=== PATIENT | female | born 1935 | race Caucasian/White ===

== ENCOUNTER 2017-02-25 14:18 | Emergency (ER) | payer MEDICARE, OTHER ==
[~2017-02-25] VITALS: Ht 152.4 cm; Wt 57.0 kg
[~2017-02-25 14:18] MED LIST: ASPI81 PO; CITRTAB7 PO; ENAL2.5T40 IV; FOSI40TA PO; HYDR50TA15 PO; LISI-366 PO; METO100T PO; PRIL10CA PO; XARE15TA PO
[2017-02-25 14:23] VITALS: BP 233/93; PULSE 62; RESP 16; TEMP 97.5; O2SAT 95
[2017-02-25] MEDS ORDERED: GABA300C5 PO (14:34)
[2017-02-25] MEDS ORDERED: METO100T PO (14:34)
[2017-02-25 15:31] VITALS: BP 217/91
--- NOTE | 2017-02-25 15:41 | RADRPT ---
EXAM DATE/TIME: 02/25/2017 15:25 [facility] COMPARISON: No previous studies available for comparison. INDICATIONS : Trauma, fall. RADIATION DOSE: 58.71 CTDIvol (mGy) MEDICAL HISTORY : Cerebrovascular disease. Hypertension. SURGICAL HISTORY : None. ENCOUNTER: Initial ACUITY: 1 day PAIN SCALE: 4/10 LOCATION: cranial TECHNIQUE: Multiple contiguous axial images were obtained of the head. Using automated exposure control and adj ustment of the mA and/or kV according to patient size, radiation dose was kept as low as reasonably a chievable to obtain optimal diagnostic quality images. DICOM format image data is available electro nically for review and comparison. FINDINGS: CEREBRUM: The ventricles are normal for age. No evidence of midline shift, mass lesion, hemorrhage or acute in farction. No extra-axial fluid collections are seen. POSTERIOR FOSSA: The cerebellum and brainstem are intact. The 4th ventricle is midline. The cerebellopontine angle i s unremarkable. EXTRACRANIAL: The visualized portion of the orbits is intact. SKULL: The calvaria is intact. No evidence of skull fracture. CONCLUSION: Negative for acute traumatic injury. Mickey Jimenez MD FACR on February 25, 2017 at 15:39 Board Certified Radiologist. This report was verified electronically.
--- NOTE | 2017-02-25 15:54 | PD ---
HPI Chief Complaint: Fall Time Seen by Provider: 15:25 Travel History International Travel<30 days: No Contact w/Intl Traveler<30days: No Traveled to known affect area: No History of Present Illness HPI 81-year-old female patient presents to the ER today because she states that she was opening a chair when she lost balance and fell onto the table hitting the right part of her face. She had no loss consciousness and denies any other injuries. She is ambulatory in the ER. Modifying Factors: None Associated Signs & Symptoms: Fall, head injury Risk Factors: None PFSH Past Medical History Arthritis: Yes Heart Rhythm Problems: No Cancer: Yes (BREAST) Cardiovascular Problems: Yes High Cholesterol: Yes Chemotherapy: No Chest Pain: No Congestive Heart Failure: No Cerebrovascular Accident: Yes Diminished Hearing: No Endocrine: No Gastrointestinal Disorders: Yes (BOWEL PERFORATION DURING COLONOSCOPY (2011)) Genitourinary: Yes (RENAL CYST) Hypertension: Yes Immune Disorder: No Kidney Stones: No Musculoskeletal: Yes Neurologic: No Psychiatric: No Reproductive: No Respiratory: No Immunizations Current: Yes Migraines: Yes Radiation Therapy: Yes Renal Failure: No Seizures: No Influenza Vaccination: Yes ?: Not Past Surgical History Abdominal Surgery: Yes (EXPLORATORY LAPAROSCOPIC LAPAROTOMY- NO FINDINGS) Cardiac Surgery: No Ear Surgery: No Endocrine Surgery: No Eye Surgery: Yes (BILATERAL CATARACT SURGERY) Genitourinary Surgery: No Gynecologic Surgery: Yes (OVARIES REMOVED) Mastectomy: Yes (LEFT) Neurologic Surgery: Yes (LUM SINHA L3-L4 WITH ICBG) Oral Surgery: No Pacemaker: No Thoracic Surgery: Yes (MASTECTOMY L BREAST) Other Surgery: Yes Social History Alcohol Use: Yes (SOCIALLY) Tobacco Use: No Substance Use: No Allergies-Medications (Allergen,Severity, Reaction): Coded Allergies: Sulfa (Sulfonamide Antibiotics) (Unverified Allergy, Severe, RASH, 02/25/17 ) morphine (Unverified Adverse Reaction, Severe, CONFUSION, 02/25/17) Reported Meds & Prescriptions Reported Meds & Active Scripts Active Reported Metoprolol Tartrate 100 Mg Tab 100 Mg PO DAILY Gabapentin 300 Mg Cap 300 Mg PO TID Review of Systems Except as stated in HPI: all other systems reviewed are Neg Physical Exam Narrative GENERAL: Well-developed pleasant elderly white female patient currently not in acute distress. Awake and oriented 3. SKIN: Focused skin assessment warm/dry. HEAD: Small amount of erythema and tenderness to palpation of the right zygomatic arch and temporal area. No deformities identified. Normocephalic. EYES: Pupils equal and round. No scleral icterus. No injection or drainage. ENT: No nasal bleeding or discharge. Mucous membranes pink and moist. NECK: Trachea midline. No JVD. Supple. No midline C-spine tenderness. CARDIOVASCULAR: Regular rate and rhythm. No murmur appreciated. RESPIRATORY: No accessory muscle use. Clear to auscultation. Breath sounds equal bilaterally. GASTROINTESTINAL: Abdomen soft, non-tender, nondistended. Hepatic and splenic margins not palpable. MUSCULOSKELETAL: No obvious deformities. No clubbing. No cyanosis. No edema. NEUROLOGICAL: Awake and alert. No obvious cranial nerve deficits. Motor grossly within normal limits. Normal speech. PSYCHIATRIC: Appropriate mood and affect; insight and judgment normal. Data Data Last Documented VS Vital Signs Date Time Temp Pulse Resp B/P (MAP) Pulse Ox O2 Delivery O2 Flow Rate FiO2 02/25/17 15:31 217/91 (133) 02/25/17 14:23 97.5 [address] Brain W/O Iv Contrast(Rout) (02/25/17 15:13) Ct Facial Bones W/O Iv Cont (02/25/17 15:25) Ed Discharge Order (02/25/17 16:18) MDM Medical Decision Making Medical Screen Exam Complete: Yes Emergency Medical Condition: Yes Medical Record Reviewed: Yes Interpretation(s) Last [address] 02/25/17 1525 Signed Impressions: Service Date/Time: Saturday, February 25, 2017 15:25 - CONCLUSION: No evidence of facial fracture Michele Colindres MD Head CT 02/25/17 1513 Signed Impressions: Service Date/Time: Saturday, February 25, 2017 15:25 - CONCLUSION: Negative for acute traumatic injury. Mickey Jimenez MD FACR Differential Diagnosis Fall, facial and head injury: Rule out intracranial injuries versus contusions Narrative Course CAT scans not show any signs of acute intracranial injuries or any signs of underlying skull fractures. At this point, my plan would be to release her with symptomatic relief or pain and follow-up to primary care doctor. Return for any worsening in discomfort, vomiting, or new symptoms as needed. The plan has been discussed with her and she states understanding. Head injury instructions are given. Diagnosis Primary Impression: Facial contusion Additional Impression: Minor head injury without loss of consciousness Disposition: 01 DISCHARGE HOME Condition: Stable Arabella Torres MD Feb 25, 2017 15:54
--- NOTE | 2017-02-25 15:58 | RADRPT ---
EXAM DATE/TIME: 02/25/2017 15:25 [facility] COMPARISON: No previous studies available for comparison. INDICATIONS : Trauma, fall. RADIATION DOSE: 34.71 CTDIvol (mGy) MEDICAL HISTORY : Cerebrovascular disease. Hypertension. SURGICAL HISTORY : None. ENCOUNTER: Initial ACUITY: 1 day PAIN SCORE: 5/10 LOCATION: Right facial TECHNIQUE: Volumetric scanning of the facial bones was performed. Using automated exposure control and adjustme nt of the mA and/or kV according to patient size, radiation dose was kept as low as reasonably achiev able to obtain optimal diagnostic quality images. DICOM format image data is available electronicall y for review and comparison. FINDINGS: ORBITS: The orbital and infraorbital osseous structures are intact. The retroconal structures have a normal configuration. No radiopaque foreign bodies are seen. NASAL BONE: The nasal bone and maxillary spine are intact ZYGOMATIC ARCHES: Symmetric without evidence of fracture. SINUSES: The maxillary, ethmoid and frontal sinuses are intact. No air-fluid levels seen. NASAL CAVITY: The nasal septum is intact and midline. The lacrimal ducts are intact. SOFT TISSUES: Soft tissue swelling overlying the lateral right orbital region. No evidence of underlying fracture. INTRACRANIAL: No intracranial air seen. CRIBIFORM PLATE: Grossly intact. CONCLUSION: No evidence of facial fracture Michele Colindres MD on February 25, 2017 at 15:54 Board Certified Radiologist. This report was verified electronically.
[2017-02-25] MEDS ORDERED: cloNIDine HCL 0.1 MG TAB PO ONE (16:30)
== END 2017-02-25 17:07 | disposition home or self-care (01) ==
LOC: PHEFT 14:18
DX: S00.83XA Contusion of other part of head, initial encounter (principal); I10 Essential (primary) hypertension; W01.190A Fall on same level from slipping, tripping and stumbling with subsequent striking against furniture, initial encounter
CPT/HCPCS: 70450; 70486; 99285

== ENCOUNTER 2018-02-22 10:17 | Observation (INO) ==
--- NOTE | 2018-02-22 11:01 | ED ---
HPI General Chief Complaint: Chest Pain Stated Complaint: Chest pain x 1 wk/was treated for acid reflux Time Seen by Provider: 02/22/18 10:30 Source: patient Mode of arrival: ambulatory Limitations: no limitations History of Present Illness HPI narrative: Patient is an 82-year-old female with history of breast cancer, hypertension and hyperlipidemia who presents to the emergency room with complaints of chest pain. Patient reports that for the past few weeks, she has been treated with Pantaprozole 40mg for gerd. Patient reports that this has not helped her with her symptoms. Patient reports that for the past week, she has been having chest pain. Patient reports that pain is substernal in nature, reports that it feels like a "pressure" to her chest. Patient thinks that the pain was exacerbated by taking her Protonix, she also endorses that she was painting a few days ago with her friends which also exacerbated her chest pain. Patient reports that pain comes and goes, she did take some Tylenol which seemed to help with her symptoms but since she continued to have pain, patient concerned that this may be cardiac in nature. Patient denies history of ACS, denies history of coronary artery disease, denies history of cardiac stents. Patient with no nausea or vomiting, no diaphoresis with her symptoms. Related Data Allergies Allergy/AdvReac Type Severity Reaction Status Date / Time Sulfa (Sulfonamide Allergy Severe RASH Verified 02/22/18 10:36 Antibiotics) morphine AdvReac Severe CONFUSION Verified 02/22/18 10:36 Review of Systems ROS: all other systems reviewed are negative PMFSH History History Provided By: Patient Medical History Medical History GERD (gastroesophageal reflux disease) (Acute) HX: breast cancer (Acute) Hypertension (Acute) Surgical History Surgical History Hx of oophorectomy (Acute) Hx of tonsillectomy (Acute) Social History Social History Substance History: No History of Abuse Second Hand Smoke Exposure: No Smoking Status: Former smoker Tobacco Type: Cigarettes How Often Do You Have a Drink Containing Alcohol: 2 to 4 times a month Recent Travel in [facility] within the Last 8 Weeks: No Recent Out of Country Travel within the Last 8 Weeks: No Exam Narrative Exam Narrative: GENERAL: Mild distress SKIN: Focused skin assessment warm/dry. HEAD: Atraumatic. Normocephalic. EYES: Pupils equal and round. No scleral icterus. No injection or drainage. ENT: No nasal bleeding or discharge. Mucous membranes pink and moist. NECK: Trachea midline. No JVD. CARDIOVASCULAR: Regular rate and rhythm. No murmur appreciated. RESPIRATORY: No accessory muscle use. Clear to auscultation. Breath sounds equal bilaterally. GASTROINTESTINAL: Abdomen soft, non-tender, nondistended. Hepatic and splenic margins not palpable. MUSCULOSKELETAL: No obvious deformities. No clubbing. No cyanosis. No edema. NEUROLOGICAL: Awake and alert. No obvious cranial nerve deficits. Motor grossly within normal limits. Normal speech. PSYCHIATRIC: Appropriate mood and affect; insight and judgment normal. Course Initial Documented Vital Signs Temperature 98.6 F 02/22/18 10:22 Pulse Rate 66 02/22/18 10:22 Respiratory Rate 16 02/22/18 10:22 Blood Pressure 206/84 H 02/22/18 10:22 Pulse Oximetry 96 02/22/18 10:22 Last Documented Vital Signs Temperature 98.6 F 02/22/18 10:22 Pulse Rate 62 02/22/18 12:27 Respiratory Rate 16 02/22/18 12:27 Blood Pressure 215/80 H 02/22/18 12:27 Pulse Oximetry 99 02/22/18 12:27 Medical Decision Making MDM Narrative Medical decision making narrative: During the course of the patients emergency department visit, the patients history, examination, and differential diagnosis were reviewed with the patient. The patient was placed on a awake overnight monitor with oximetry and frequent blood pressure monitoring. The patient had an IV access obtained and blood work sent for analysis. The patient was initially provided asa 162mg as well as SL nitro The patients laboratory studies were reviewed and remarkable for WBC 7.8, hemoglobin 14.4, hematocrit 41.8, platelets 458 Sodium 139, potassium 4.9, chloride 105, BUN 20, creatinine 1.40, glucose 96 Troponin is less than 0.02 After 3 sublingual nitroglycerin, chest pain has completely resolved. Plan to observe patient in chest pain unit case reviewed with Dr. Mckenzie who accepts pt to service Medical Screen Exam Complete: Yes Emergency Medical Condition: Yes Differential Diagnosis Differential Diagnosis: ACS, arrhythmia, GERD, pancreatitis, gastritis, gastroenteritis Medical Records Medical records reviewed: Yes I reviewed the patient's medical records. Lab Data Lab results reviewed: Yes I reviewed the patient's lab results. Result diagrams: 02/22/18 10:43 02/22/18 10:43 Lab Results 02/22/18 02/22/18 02/22/18 Range/Units 10:43 10:43 10:43 CBC w Diff Auto diff final WBC 7.8 (4.0-11.0) th/mm3 RBC 4.48 (4.00-5.30) mil/mm3 Hgb 14.4 (11.6-15.3) gm/dL Hct 41.8 (35.0-46.0) % MCV 93.4 (80.0-100.0) fL MCH 32.2 (27.0-34.0) pg MCHC 34.5 (32.0-36.0) % RDW 12.6 (11.6-17.2) % Plt Count 458 H (150-450) th/mm3 MPV 8.7 (7.0-11.0) fL Neut % (Auto) 68.6 (16.0-70.0) % Lymph % (Auto) 16.3 (9.0-44.0) % Brooke % (Auto) 9.5 H (0.0-8.0) % Eos % (Auto) 4.9 H (0.0-4.0) % Baso % (Auto) 0.7 (0.0-2.0) % Neut # (Auto) 5.3 (1.8-7.7) th/mm3 Lymph # (Auto) 1.3 (1.0-4.8) th/mm3 Brooke # (Auto) 0.7 (0.0-0.9) th/mm3 Eos # (Auto) 0.4 (0.0-0.4) th/mm3 Baso # (Auto) 0.1 (0.0-0.2) th/mm3 WBC Differential . Differential Comment . PT 10.0 (9.8-11.6) sec INR 1.0 Ratio APTT 25.7 (23.4-31.7) sec Sodium 139 (136-145) meq/L Potassium 4.9 (3.5-5.1) meq/L Chloride 105 (98-107) meq/L Carbon Dioxide 24.3 (21.0-32.0) meq/L Anion Gap 10 (5-15) meq/L BUN 20 H (7-18) mg/dL Creatinine 1.40 H (0.50-1.00) mg/dL Estimated GFR 36 L (>89) mL/min Random Glucose 96 (74-106) mg/dL Calcium 9.0 (8.5-10.1) mg/dL Total Bilirubin 0.4 (0.2-1.0) mg/dL AST 27 (15-37) U/L ALT 28 (10-53) U/L Alkaline Phosphatase 90 (45-117) U/L Total Creatine Kinase 83 (26-192) U/L Troponin I Less than 0.02 L (0.02-0.05) ng/mL B-Natriuretic Peptide (0-100) pg/mL Total Protein 7.3 (6.4-8.2) g/dL Albumin 3.6 (3.4-5.0) g/dL Lipase 161 (73-393) U/L 02/22/18 Range/Units 10:43 CBC w Diff WBC (4.0-11.0) th/mm3 RBC (4.00-5.30) mil/mm3 Hgb (11.6-15.3) gm/dL Hct (35.0-46.0) % MCV (80.0-100.0) fL MCH (27.0-34.0) pg MCHC (32.0-36.0) % RDW (11.6-17.2) % Plt Count (150-450) th/mm3 MPV (7.0-11.0) fL Neut % (Auto) (16.0-70.0) % Lymph % (Auto) (9.0-44.0) % Brooke % (Auto) (0.0-8.0) % Eos % (Auto) (0.0-4.0) % Baso % (Auto) (0.0-2.0) % Neut # (Auto) (1.8-7.7) th/mm3 Lymph # (Auto) (1.0-4.8) th/mm3 Brooke # (Auto) (0.0-0.9) th/mm3 Eos # (Auto) (0.0-0.4) th/mm3 Baso # (Auto) (0.0-0.2) th/mm3 WBC Differential Differential Comment PT (9.8-11.6) sec INR Ratio APTT (23.4-31.7) sec Sodium (136-145) meq/L Potassium (3.5-5.1) meq/L Chloride (98-107) meq/L Carbon Dioxide (21.0-32.0) meq/L Anion Gap (5-15) meq/L BUN (7-18) mg/dL Creatinine (0.50-1.00) mg/dL Estimated GFR (>89) mL/min Random Glucose (74-106) mg/dL Calcium (8.5-10.1) mg/dL Total Bilirubin (0.2-1.0) mg/dL AST (15-37) U/L ALT (10-53) U/L Alkaline Phosphatase (45-117) U/L Total Creatine Kinase (26-192) U/L Troponin I (0.02-0.05) ng/mL B-Natriuretic Peptide 210 H (0-100) pg/mL Total Protein (6.4-8.2) g/dL Albumin (3.4-5.0) g/dL Lipase (73-393) U/L Imaging Data Attestation: I personally reviewed and interpreted this imaging study as follows : Radiologist's impression: Chest X-Ray 02/22/18 10:38 CONCLUSION: No acute cardiopulmonary disease. ECG Data EKG Prior to Arrival: No Attestation: I personally reviewed and interpreted this ECG as follows: Interpretation: EKG at 1041 shows normal sinus rhythm at 70 bpm, there is a first-degree AV block. qt/qtc: 389/410, no acute st or t wave changes Discharge Plan Discharge Disposition Patient Disposition: 30 Still Patient Discharge Condition Condition: Stable Discharge Details Diagnosis: Chest pain Physicians Team ED Provider: Talisha Gongora Primary Care Provider: Moses Dsouza Discharge Instructions Patient Printed Instructions: Chest Pain (ED) Status ED Status: With Doctor
[2018-02-22 11:05] LABS: Baso # (Auto) 0.1 th/mm3 (0.0-0.2); Baso % (Auto) 0.7 % (0.0-2.0); Eos # (Auto) 0.4 th/mm3 (0.0-0.4); Eos % (Auto) 4.9 % (0.0-4.0); Hematocrit 41.8 % (35.0-46.0); Hemoglobin 14.4 gm/dL (11.6-15.3); Lymph # (Auto) 1.3 th/mm3 (1.0-4.8); Lymph % (Auto) 16.3 % (9.0-44.0); Mean Corpuscular HGB Conc 34.5 % (32.0-36.0); Mean Corpuscular Hemoglobin 32.2 pg (27.0-34.0); Mean Corpuscular Volume 93.4 fL (80.0-100.0); Mean Platelet Volume 8.7 fL (7.0-11.0); Mono # (Auto) 0.7 th/mm3 (0.0-0.9); Mono % (Auto) 9.5 % (0.0-8.0); Neut # (Auto) 5.3 th/mm3 (1.8-7.7); Neut % (Auto) 68.6 % (16.0-70.0); Platelet Count 458 th/mm3 (150-450); Red Blood Count 4.48 mil/mm3 (4.00-5.30); Red Cell Distribution Width 12.6 % (11.6-17.2); White Blood Count 7.8 th/mm3 (4.0-11.0)
--- NOTE | 2018-02-22 11:17 | XR ---
EXAM DATE: 02/22/2018 11:14 AM EST AGE/SEX: 82 years / Female INDICATIONS: Chest pain today. CLINICAL DATA: This is the patient's initial encounter. Patient reports that signs and symptoms have been present for 1 day and indicates a pain score of 7/10. MEDICAL/SURGICAL HISTORY: . Cerebrovascular disease. Hypertension None. COMPARISON: [facility] [place], CHEST SINGLE AP, 04/28/2012. . FINDINGS: A single AP view of the chest demonstrates the lungs to be symmetrically aerated without evidence of mass, infiltrate or effusion. The cardiomediastinal contours are unremarkable. Osseous structures a re intact. CONCLUSION: No acute cardiopulmonary disease. Electronically signed by: Vega Meredith MD 02/22/2018 11:16 AM EST
[2018-02-22 11:25] LABS: Chloride 105 meq/L (98-107); Potassium 4.9 meq/L (3.5-5.1); Sodium 139 meq/L (136-145)
[2018-02-22 11:29] LABS: Albumin 3.6 g/dL (3.4-5.0); Anion Gap 10 meq/L (5-15); Blood Urea Nitrogen 20 mg/dL (7-18); Carbon Dioxide 24.3 meq/L (21.0-32.0); Glucose,Random 96 mg/dL (74-106); Lipase 161 U/L (73-393)
[2018-02-22 11:30] LABS: Activated Partial Thrombo Time 25.7 sec (23.4-31.7)
[2018-02-22] MEDS ORDERED: Sod Chloride 0.9% Inj 1,000 ML IV.SIG SCH (11:30)
[2018-02-22 11:32] LABS: Alanine Aminotransferase 28 U/L (10-53); Aspartate Aminotransferase 27 U/L (15-37); Glomerular Filtration Rate 36 mL/min (>89)
[2018-02-22 11:33] LABS: Total Protein 7.3 g/dL (6.4-8.2)
[2018-02-22 11:35] LABS: Alkaline Phosphatase 90 U/L (45-117)
[2018-02-22 11:50] LABS: Creatine Kinase 83 U/L (26-192)
[2018-02-22] MEDS ORDERED: Labetalol HCl Inj 100 MG/20 ML Vial IV.PUSH ONE (13:24)
[2018-02-22 13:43] LABS: Creatine Kinase 78 U/L (26-192)
--- NOTE | 2018-02-22 14:31 | P.HP ---
History of Present Illness Primary Care Physician: Moses Dsouza DO Chief Complaint: Chest pain History of Present Illness: This is an 82-year-old female patient with a known medical history of hypertension, hyperlipidemia and history of breast cancer who presented to the ED with complaints of chest pain. Patient states that yesterday she developed a midsternal chest pain that was pressure-like in nature, constant, denied any radiation of the pain denied any associated sweating, nausea, vomiting or shortness of breath. She states that she has never had this type of sensation before. She did undergo a stress test roughly 15 years ago which was reportedly negative. Should be noted that patient saw her primary care physician 2 weeks ago and was prescribed pantoprazole for diagnosis of GERD and complaints of indigestion. She states that over the past week since she is finished her pantoprazole she is developed this substernal chest pain. She states that she is attempted to take Tylenol for the pain which did not seem to help her symptoms. CAD, family history noncontributory, denies any tobacco abuse, states that her cholesterol has been well controlled. It should be noted that patient has history of left breast cancer, underwent a left mastectomy and did not require any chemo or radiation. She states that roughly 20 years later she had surgery on her L3 and developed cancer at that point and underwent radiation. - Diagnosis (1) Chest pain Review of Systems All other systems reviewed negative except as stated in HPI PMFSH - History History Provided By: Patient - Medical History Medical History: Medical History (Last Reviewed 02/22/18 @ 14:23 by So Brown) GERD (gastroesophageal reflux disease) HX: breast cancer Hypertension - Surgical History Surgical History: Surgical History (Last Reviewed 02/22/18 @ 14:23 by So Brown) Hx of oophorectomy Hx of tonsillectomy - Family History Family History: Family History (Last Updated 02/22/18 @ 14:23 by So Brown) Other Family history non-contributory - Social History I have reviewed the patient's Social History: Yes - Tobacco History Second Hand Smoke Exposure: No Tobacco Use In Past 30 Days: No Smoking Status: Former smoker Tobacco Type: Cigarettes - Alcohol History How Often Do You Have a Drink Containing Alcohol: 2 to 4 times a month - Substance Use History Substance History: No History of Abuse - Travel History Recent Travel in the [place] Within the Last 8 Weeks: No Recent Travel Out of the Country Within the Last 8 Weeks: No - Immunization History Tetanus Immunization: <5 Years Medications and Allergies Active Medications: Active Medications Ondansetron HCl (Zofran Inj) 4 mg IV.PUSH Q6H PRN PRN Reason: NAUSEA Sodium Chloride (Ns Flush) 2 ml IV.FLUSH UNSCH PRN PRN Reason: FLUSH AFTER USING IV ACCESS Sodium Chloride (Ns Flush) 2 ml IV.FLUSH BID SARA Sodium Chloride (Ns Flush) 2 ml IV.FLUSH PRN PRN PRN Reason: FLUSH AFTER USING IV ACCESS Allergies Allergy/AdvReac Type Severity Reaction Status Date / Time Sulfa (Sulfonamide Allergy Severe RASH Verified 02/22/18 10:36 Antibiotics) morphine AdvReac Severe CONFUSION Verified 02/22/18 10:36 Home Medications Medication Instructions Recorded Confirmed Type amlodipine 5 mg PO DAILY 02/22/18 02/22/18 History aspirin 81 mg PO DAILY 02/22/18 02/22/18 History calcium phosphate-vitamin D3 1 tab PO DAILY 02/22/18 02/22/18 History [Citracal + D3 (calcium phos)] gabapentin 300 mg PO TID 02/22/18 02/22/18 History metoprolol tartrate 100 mg PO DAILY 02/22/18 02/22/18 History pantoprazole 40 mg PO DAILY 02/22/18 02/22/18 History Exam Vital signs: Vital Signs 02/22/18 10:22 02/22/18 10:38 02/22/18 11:05 Temperature 98.6 F Pulse Rate 66 69 Respiratory Rate 16 16 Blood Pressure 206/84 H 218/91 H Pulse Oximetry 96 95 97 02/22/18 11:10 02/22/18 11:11 02/22/18 11:15 Temperature Pulse Rate 72 73 73 Respiratory Rate 16 16 16 Blood Pressure 132/62 102/59 L 109/56 L Pulse Oximetry 97 97 98 02/22/18 11:24 02/22/18 11:32 02/22/18 12:27 Temperature Pulse Rate 65 67 62 Respiratory Rate 16 16 16 Blood Pressure 79/49 L 141/68 H 215/80 H Pulse Oximetry 98 95 99 02/22/18 13:25 02/22/18 13:35 Temperature Pulse Rate 61 69 Respiratory Rate 16 16 Blood Pressure 214/80 H 149/59 H Pulse Oximetry 96 95 Intake & Output 02/21/18 02/22/18 02/22/18 18:59 06:59 18:59 Intake Total 1000 / 1000 Balance 1000 / 1000 Weight 59.2 kg Intake: IV 1000 / 1000 NS Inj 1,000 ML @ 1000 mls/hr 1000 / 1000 IV.SIG BOLUS SARA Rx#:[id number] Narrative: GENERAL: Well-developed, well-nourished patient in NAD. SKIN: Warm and dry. No rash. HEAD: Normocephalic. Atraumatic. EYES: Pupils equal and round. No scleral icterus. No injection or drainage. ENT: No nasal bleeding or discharge. Mucous membranes pink and moist. NECK: Supple. Trachea midline. CARDIOVASCULAR: Regular rate and rhythm. S1, S2 noted. No murmur appreciated. No reproducible chest pain to palpation. RESPIRATORY: No accessory muscle use. Clear to auscultation. Breath sounds equal bilaterally. GASTROINTESTINAL: Abdomen soft, non-tender, nondistended. Normoactive bowel sounds x4. MUSCULOSKELETAL: No obvious deformities. Extremities without clubbing, cyanosis , or edema. NEUROLOGICAL: Awake and alert. No obvious cranial nerve deficits. Motor grossly within normal limits. 5/5 muscle strength in bilateral upper and lower extremities. Normal speech. PSYCHIATRIC: Appropriate mood and affect; insight and judgment normal. Results - Labs CBC & Chem 7: 02/22/18 10:43 02/22/18 10:43 Labs: Laboratory Results - last 24 hr 02/22/18 02/22/18 02/22/18 10:43 10:43 10:43 CBC w Diff Auto diff final WBC 7.8 RBC 4.48 Hgb 14.4 Hct 41.8 MCV 93.4 MCH 32.2 MCHC 34.5 RDW 12.6 Plt Count 458 H MPV 8.7 Neut % (Auto) 68.6 Lymph % (Auto) 16.3 [place] % (Auto) 9.5 H Eos % (Auto) 4.9 H Baso % (Auto) 0.7 Neut # (Auto) 5.3 Lymph # (Auto) 1.3 [place] # (Auto) 0.7 Eos # (Auto) 0.4 Baso # (Auto) 0.1 WBC Differential . Differential Comment . PT 10.0 INR 1.0 APTT 25.7 Sodium 139 Potassium 4.9 Chloride 105 Carbon Dioxide 24.3 Anion Gap 10 BUN 20 H Creatinine 1.40 H Estimated GFR 36 L Random Glucose 96 Calcium 9.0 Total Bilirubin 0.4 AST 27 ALT 28 Alkaline Phosphatase 90 Total Creatine Kinase 83 Troponin I Less than 0.02 L B-Natriuretic Peptide Total Protein 7.3 Albumin 3.6 Lipase 161 02/22/18 02/22/18 10:43 13:13 CBC w Diff WBC RBC Hgb Hct MCV MCH MCHC RDW Plt Count MPV Neut % (Auto) Lymph % (Auto) [place] % (Auto) Eos % (Auto) Baso % (Auto) Neut # (Auto) Lymph # (Auto) [place] # (Auto) Eos # (Auto) Baso # (Auto) WBC Differential Differential Comment PT INR APTT Sodium Potassium Chloride Carbon Dioxide Anion Gap BUN Creatinine Estimated GFR Random Glucose Calcium Total Bilirubin AST ALT Alkaline Phosphatase Total Creatine Kinase 78 Troponin I Less than 0.02 L B-Natriuretic Peptide 210 H Total Protein Albumin Lipase - Imaging Impressions Chest X-Ray 02/22/18 10:38 CONCLUSION: No acute cardiopulmonary disease. Caprini VTE Risk Assessment Caprini VTE Risk Assessment: Moderate/High Risk (score >= 2) Caprini Risk Assessment Model: Point Value = 1 Point Value = 2 Point Value = 3 Point Value = 5 Age 41-60 Minor surgery BMI > 25 kg/m2 Swollen legs Varicose veins or History of unexplained or recurrent spontaneous Oral contraceptives or hormone replacement Sepsis (< 1 month) Serious lung disease, including pneumonia (< 1 month) Abnormal pulmonary function Acute myocardial infarction Congestive heart failure (< 1 month) History of inflammatory bowel disease Medical patient at bed rest Age 61-74 Arthroscopic surgery Major open surgery (> 45 min) Laparoscopic surgery (> 45 min) Malignancy Confined to bed (> 72 hours) Immobilizing plaster cast Central venous access Age >= 75 History of VTE Family history of VTE Factor V Leiden Prothrombin [id number] Lupus anticoagulant Anticardiolipin antibodies Elevated serum homocysteine Heparin-induced thrombocytopenia Other congenital or acquired thrombophilia Stroke (< 1 month) Elective arthroplasty Hip, pelvis, or leg fracture Acute spinal cord injury (< 1 month) Prophylaxis Regimen: Total Risk Factor Score Risk Level Prophylaxis Regimen 0-1 Low Early ambulation 2 Moderate Order ONE of the following: *Sequential Compression Device (SCD) *Heparin 5000 units SQ BID 3-4 Higher Order ONE of the following medications: *Heparin 5000 units SQ TID *Enoxaparin/Lovenox 40 mg SQ daily (WT < 150 kg, CrCl > 30 mL/min) *Enoxaparin/Lovenox 30 mg SQ daily (WT < 150 kg, CrCl > 10-29 mL/min) *Enoxaparin/Lovenox 30 mg SQ BID (WT < 150 kg, CrCl > 30 mL/min) AND/OR *Sequential Compression Device (SCD) 5 or more Highest Order ONE of the following medications: *Heparin 5000 units SQ TID (Preferred with Epidurals) *Enoxaparin/Lovenox 40 mg SQ daily (WT < 150 kg, CrCl > 30 mL/min) *Enoxaparin/Lovenox 30 mg SQ daily (WT < 150 kg, CrCl > 10-29 mL/min) *Enoxaparin/Lovenox 30 mg SQ BID (WT < 150 kg, CrCl > 30 mL/min) AND *Sequential Compression Device (SCD) Assessment and Plan - Assessment (1) Chest pain Code(s): R07.9 - Chest pain, unspecified Status: Acute - Plan This is an 82-year-old male patient with: Chest pain, atypical -Patient presented with chest pain x 1 day. Admitted to the chest pain center for observation. -Chest pain was relieved with administration of nitroglycerin in ED. Was given aspirin in ED, will continue daily. -ACS will be ruled out with serial EKGs and serial troponins. Initial troponin flat. Monitor trend. -EKG reviewed showing controlled heart rate with obvious LVH noted. Some nonspecific t-wave changes in leads I,II,III. -CXR reviewed showing no acute cardiopulmonary disease. -Continue on cardiac telemetry, monitor for any arrhythmias. -CBC and BMP reviewed, essentially unremarkable. -Patient has not had a stress test for 15 years. If ACS ruled out patient will likely undergo a cardiac nuclear stress test to further rule out any ischemia. -Further hospitalization and treatment plan will depend on nuclear imaging results. -Patient is stable at this time and agreeable to plan. Hypertension, uncontrolled -Patient's BP is very labile, was systolic in the 70's and also elevated BP systolic in the 200's. Continue home medications. Monitor BP trends. May be secondary to chest pain. Vasotec IV as needed. GERD: Continue home PPI. DVT Prophylaxis: SCDs. Heparin. (1) Chest pain Qualifiers: Chest pain type: unspecified Qualified Code(s): R07.9 - Chest pain, unspecified
--- NOTE | 2018-02-22 15:44 | ECG ---
Date Performed: 02/22/2018 Time Performed: 13:03:36 PTAGE: 82 years EKG: Sinus rhythm MODERATE VOLTAGE CRITERIA FOR LVH, CONSIDER NORMAL VARIANT BORDERLINE ECG No significant change from prior electrocardiogram. PREVIOUS TRACING : 02/22/2018 10.41 DOCTOR: Stefan Wright Interpretating Date/Time 02/22/2018 15:43:06
--- NOTE | 2018-02-22 15:47 | ECG ---
Date Performed: 02/22/2018 Time Performed: 15:31:27 PTAGE: 82 years EKG: Sinus rhythm VOLTAGE CRITERIA FOR LVH ABNORMAL ECG No significant change from prior electrocardiogram. PREVIOUS TRACING : 02/22/2018 13.03 DOCTOR: Stefan Wright Interpretating Date/Time 02/22/2018 15:45:31
[2018-02-22] MEDS ORDERED: Aluminum/Magnesium/Simethacone Susp 30 ML UDC PO PRN (16:04)
[2018-02-22] MEDS ORDERED: amLODIPine 5 MG Tablet PO ONE (17:30)
[2018-02-22] MEDS: Heparin - SQ 10,000 UNITS/ML Vial SQ SCH (20:51)
[2018-02-22] MEDS: Gabapentin 300 MG Capsule PO SCH (20:52)
--- NOTE | 2018-02-22 20:53 | ECG ---
Date Performed: 02/22/2018 Time Performed: 10:41:01 PTAGE: 82 years EKG: Sinus rhythm WITH FIRST DEGREE AV BLOCK POSSIBLE LEFT ATRIAL ENLARGEMENT POSSIBLE LEFT VENTRICULAR HYPERTROPHY AB NORMAL ECG PREVIOUS TRACING : 04/28/2012 19.50 Since the previous tracing, no significant change noted DOCTOR: Maricruz Watkins Interpretating Date/Time 02/22/2018 20:51:19
[2018-02-23] MEDS: Gabapentin 300 MG Capsule PO SCH (08:40)
[2018-02-23] MEDS: Heparin - SQ 10,000 UNITS/ML Vial SQ SCH (08:43)
[2018-02-23] MEDS ORDERED: Calcium/Vitamin D 250/125 MG Tablet PO SCH (09:00)
[2018-02-23] MEDS ORDERED: Metoprolol Tartrate 100 MG Tablet PO SCH (09:00)
[2018-02-23] MEDS ORDERED: amLODIPine 5 MG Tablet PO SCH ×2 (09:00)
[2018-02-23 09:04] VITALS: RESP 20
[2018-02-23 12:53] VITALS: BP 120/58
[2018-02-23 13:27] VITALS: PULSE 67; TEMP 99.5; O2SAT 95
[2018-02-23] MEDS ORDERED: Regadenoson Inj 0.4 MG/5 ML Syringe IV.PUSH ONE (14:09)
--- NOTE | 2018-02-23 15:14 | NM ---
EXAM DATE: 02/23/2018 3:08 PM EST AGE/SEX: 82 years / Female INDICATIONS:Angina. . Midsternal chest pain. CLINICAL DATA: This is the patient's initial encounter. Patient reports that signs and symptoms have been present for 1 day and indicates a pain score of 2/10. MEDICAL/SURGICAL HISTORY: Carcinoma, breast. Hypertension. . Oophorectomy. COMPARISON: No prior exams available for comparison. DOSE: 8.1 mCi Tc 99m Myoview at rest 25.2 mCi [id number] at stress 0.4 mg Lexiscan STRESS SYMPTOMS: Stomach cramps. EJECTION FRACTION: >70 % TECHNIQUE: The patient underwent pharmacologic stress with infusion of prescribed dose. Continuous ECG tracing was monitored during stress. Gated SPECT imaging was performed after stress and conventi onal SPECT imaging was performed at rest. The examination was performed on a SPECT/CT scanner, both attenuation and non-corrected datasets were reviewed. FINDINGS: Distribution: The maximum perfused segment at stress is in the wall. Perfusion Study: The pattern of perfusion at stress is within normal limits. Gated Study: There are intact wall motion and wall thickening without hypokinetic or dyskinetic segm ents. The ejection fraction is calculated at >70%. RISK CATEGORY: Low (<1% Annual Motality Rate) CONCLUSION: 1. No fixed or reversible wall defects to suggest ischemia or infarction. 2. Normal wall motion and calculated ejection fraction. Electronically signed by: Juancarlos Nugent MD 02/23/2018 3:12 PM EST
--- NOTE | 2018-02-23 16:12 | P.DS ---
Date of admission: 02/22/18 12:53 Primary care physician: Moses Dsouza DO Brief History from admission: This is an 82-year-old female patient with a known medical history of hypertension, hyperlipidemia and history of breast cancer who presented to the ED with complaints of chest pain. Patient states that yesterday she developed a midsternal chest pain that was pressure-like in nature, constant, denied any radiation of the pain denied any associated sweating, nausea, vomiting or shortness of breath. She states that she has never had this type of sensation before. She did undergo a stress test roughly 15 years ago which was reportedly negative. Should be noted that patient saw her primary care physician 2 weeks ago and was prescribed pantoprazole for diagnosis of GERD and complaints of indigestion. She states that over the past week since she is finished her pantoprazole she is developed this substernal chest pain. She states that she is attempted to take Tylenol for the pain which did not seem to help her symptoms. CAD, family history noncontributory, denies any tobacco abuse, states that her cholesterol has been well controlled. It should be noted that patient has history of left breast cancer, underwent a left mastectomy and did not require any chemo or radiation. She states that roughly 20 years later she had surgery on her L3 and developed cancer at that point and underwent radiation. DS: Summary Hospital Course: Presented for Chest pain, and uncontrolled BP. Troponin flat. She was admitted to chest pain center, nuclear stress completed. No fixed or reversible wall defects to suggest ischemia or infarction. Normal wall motion and calculated ejection fraction. She has issues with BP while here , lisinopril added to home medications. Renal functions elevated, this will need to be monitored close as duc may not be appropriate. She will follow up in office, we will refer her to cardiology for further work up and BP management. - Time Spent with Patient Total time spent providing and/or coordinating discharge services: 20 Less than 30 minutes - Quality: AMI Clinical Trial Participant: No - Quality: Stroke Symptom Onset Unknown: No - Quality: VTE Is this test being ordered to rule out VTE?: No Deep Vein Thrombosis/Pulmonary Embolism Present on Admission: No Exam Vital signs: Vital Signs 02/22/18 17:04 02/22/18 18:26 02/22/18 18:44 Temperature Pulse Rate Respiratory Rate Blood Pressure 227/98 H 219/79 H 166/80 H Pulse Oximetry 02/22/18 20:00 02/23/18 00:00 02/23/18 04:00 Temperature 97.7 F 95.5 F L 96.5 F L Pulse Rate 66 68 66 Respiratory Rate 18 18 18 Blood Pressure 186/79 H 162/72 H 127/60 Pulse Oximetry 97 97 95 02/23/18 08:00 02/23/18 12:00 02/23/18 12:53 Temperature 97.6 F 99.5 F Pulse Rate 65 67 Respiratory Rate 20 20 Blood Pressure 167/76 H 176/76 H 120/58 L Pulse Oximetry 96 95 Intake & Output 02/22/18 02/23/18 02/23/18 18:59 06:59 18:59 Intake Total 1000 / 1000 0 / 0 0 / 0 Output Total 350 / 350 200 / 200 Balance 1000 / 1000 -350 / -350 -200 / -200 Weight 59.2 kg 60.1 kg Intake: IV 1000 / 1000 NS Inj 1,000 ML @ 1000 mls/hr 1000 / 1000 IV.SIG BOLUS SARA Rx#:[id number] Oral 0 / 0 0 / 0 Output: Urine 350 / 350 200 / 200 - Constitutional no acute distress - Routine HEENT Exam Head: Present: normocephalic Eye: Present: PERRL ENT: Present: mucous membranes moist - Routine Neck Exam Present: supple - Routine Respiratory Exam Present: CTA bilaterally - Routine Cardiovascular Exam Present: RRR, S1, S2 - Routine Abdominal Exam Present: soft, normoactive bowel sounds - Routine Extremities Exam Present: pulses intact - Routine Skin Exam Present: dry, warm - Routine Neurological Exam Present: alert, oriented X3 Results Procedures completed during hospitalization: Nuclear stress test Labs on day of discharge: Labs from last 24 hours 02/22/18 16:15 Troponin I Less than 0.02 L - Impressions ITS Impressions Chest X-Ray 02/22/18 10:38 CONCLUSION: No acute cardiopulmonary disease. Myocardial Perfusion Scan Nuc Med 02/23/18 00:00 CONCLUSION: 1. No fixed or reversible wall defects to suggest ischemia or infarction. 2. Normal wall motion and calculated ejection fraction. Discharge Plan - Discharge Disposition Patient Disposition: Discharge Home - Discharge Condition Condition: Stable - Discharge Order Discharge Orders: Discharge Order (Routine); Ordered 02/23/18 Ordered By: Mary Teresita - Discharge Details Anticipated Discharge Date: 02/23/18 Discharge Comment: Lisinopril called into [facility] - Physicians Team Primary Care Provider: Moses Dsouza Attending Provider: Moses Dsouza
== END 2018-02-23 17:37 | disposition home or self-care (01) ==
LOC: PHED 10:17 → PHEDA 10:17 → PH3 13:53
PROVIDERS: ADMIT Family Medicine; ATTEND Family Medicine